=== PATIENT | female | born 1955 | race Caucasian/White ===

== ENCOUNTER 2017-04-06 11:46 | Emergency (ER) | payer MEDICAID ==
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
--- NOTE | 2017-04-06 13:07 | XRAY Preliminary Report ---
Exam: XR CHEST 2 VIEW PA/LAT IMPRESSION: 1. Clear lungs. 2. Central pulmonary artery enlargement. [facility] SITE ID: [id number]
--- NOTE | 2017-04-06 13:09 | XRAY Report ---
EXAM: CHEST RADIOGRAPHY EXAM DATE: 04/06/2017 12:34 PM. CLINICAL HISTORY: Chest pain dyspnea. COMPARISON: None. TECHNIQUE: 2 views. FINDINGS: Lungs/Pleura: No focal opacities evident. No pleural effusion. No pneumothorax. Normal volumes. Mediastinum: The heart size is normal. There is mild aortic arch atherosclerotic calcification. The c entral pulmonary arteries appear prominent in size. The peripheral pulmonary arteries appear normal i n size. Other: None. IMPRESSION: 1. Clear lungs. 2. Central pulmonary artery enlargement. [facility] Referring Provider Line: [phone] SITE ID: [id number]
[2017-04-06 13:12] LABS: BASOPHILS # (AUTO) 0.1 10^3/uL (0.0-0.1); EOSINOPHILS % (AUTO) 0.1 %; HCT - HEMATOCRIT 38.8 % (37.0-47.0); HGB - HEMOGLOBIN 12.9 g/dL (12.0-16.0); LYMPHOCYTES # (AUTO) 2.4 10^3/uL (1.5-3.5); LYMPHOCYTES % (AUTO) 26.2 %; MEAN CORPUSCULAR HEMOGLOBIN 28.3 pg (27.0-31.0); MEAN CORPUSCULAR HGB CONC 33.4 g/dL (32.0-36.0); MEAN CORPUSCULAR VOLUME 84.7 fL (81.0-99.0); MEAN PLATELET VOLUME 8.7 fL (7.9-10.8); MONOCYTES # (AUTO) 0.6 10^3/uL (0.0-1.0); MONOCYTES % (AUTO) 6.1 %; NEUTROPHILS # (AUTO) 6.2 10^3/uL (1.5-6.6); NEUTROPHILS % (AUTO) 66.6 %; NUCLEATED RED BLOOD CELLS AUTO 0.1 /100WBC; RED BLOOD COUNT 4.58 10^6/uL (4.20-5.40); RED CELL DISTRIBUTION WIDTH 14.7 % (12.0-15.0); UNCORRECTED WHITE BLOOD COUNT 9.4 x10^3/uL; WHITE BLOOD COUNT 9.4 x10^3/uL (4.8-10.8)
[2017-04-06 13:23] LABS: ALBUMIN/GLOBULIN RATIO 1.2 (1.0-2.2); BILIRUBIN,TOTAL 0.5 mg/dL (0.2-1.0); CALCIUM 9.2 mg/dL (8.5-10.3); CREATININE 0.8 mg/dL (0.4-1.0); POTASSIUM 3.9 mmol/L (3.5-5.0); TOTAL PROTEIN 7.6 g/dL (6.7-8.2)
[2017-04-06 14:30] LABS: BILIRUBIN,URINE NEGATIVE (NEGATIVE); PH,URINE 7.5 PH (5.0-7.5)
[2017-04-06 14:31] LABS: UA CHARGE (STRIP ONLY) YES; UR CULTURE IF IND NOT INDICATED
[2017-04-06] MEDS ORDERED: SODIUM CHLORIDE 0.9% 1,000 ML IV ONE (14:43)
[2017-04-06 17:18] VITALS: BP 168/81
== END 2017-04-06 16:45 | disposition home or self-care (01) ==
LOC: ED 11:46
DX: R07.89 Other chest pain (principal); F43.9 Reaction to severe stress, unspecified; E86.0 Dehydration
CPT/HCPCS: 36415; 71020; 80053; 81001; 81003; 83690; 84484; 85025; 85379; 87086; 93005; 96360; 99283; 99284